=== PATIENT | male | born 1995 | race Two or more races ===

== ENCOUNTER 2018-10-28 01:16 | Emergency (ER) | payer OTHER ==
[~2018-10-28] VITALS: Ht 185.4 cm; Wt 102.1 kg
--- NOTE | 2018-10-28 01:20 | NUR ---
PT [id number] FROM A HOTEL AFTER WITNESSED FOCAL SEIZURE. PER RA, PATIENT BS WAS 40 ON SCENE. PT DENIES SOB, CHEST PAIN, HEADACHE, CHANGE IN VISION. PT AAOX4. RESPIRATIONS EVEN AND UNLABORED. SKIN WARM AND INTACT. VITAL SIGNS STABLE. NO ACUTE DISTRESS NOTED. PT PLACED ON CONTINUOUS RESPONDER, WAITING MD EVALUATION
--- NOTE | 2018-10-28 01:23 | NUR ---
MD AT BEDSIDE FOR EVALUATION
[2018-10-28] MEDS ORDERED: LEVETIRACETAM (500MG) 1,000 MG in IV NS 0.9% 100 ML IV STA (01:46)
[2018-10-28] MEDS ORDERED: LEVETIRACETAM (500MG) 500 MG/5 ML VIAL IV ONE ×3 (01:51→02:00)
[2018-10-28] MEDS ORDERED: IV NS 0.9% 1,000 ML BAG IV ONE (02:00)
[2018-10-28 02:05] LABS: BASOPHILS % (AUTO) 0.3 % (0.0-2.0); EOSINOPHILS % (AUTO) 1.6 % (0.0-6.0); HEMATOCRIT 44 % (39-51); HEMOGLOBIN 14.9 g/dL (13.5-17.5); LYMPHOCYTES # (AUTO) 2.5 /CMM (0.8-4.8); LYMPHOCYTES % (AUTO) 32.9 % (20.0-44.0); MEAN CORPUSCULAR HGB CONC 34 g/dl (31.0-36.0); MEAN CORPUSCULAR VOLUME 88 fL (80-96); MONOCYTES # (AUTO) 0.5 /CMM (0.1-1.30); MONOCYTES % (AUTO) 6.3 % (2.0-12.0); NEUTROPHILS # (AUTO) 4.5 /CMM (1.8-8.9); NEUTROPHILS % (AUTO) 58.9 % (43.0-81.0); PLATELET COUNT (AUTO) 283 /CMM (150-450); RED BLOOD CELL COUNT(AUTO) 5.06 MIL/uL (4.5-6.0); WHITE BLOOD COUNT (AUTO) 7.6 K/uL (4.3-11.0)
[2018-10-28 02:13] LABS: CALCIUM, SERUM 9.3 mg/dL (8.5-10.1); CREATININE 1.4 mg/dL (0.6-1.3); POTASSIUM 3.4 mmol/L (3.5-5.1)
--- NOTE | 2018-10-28 03:38 | NUR ---
Patient discharged to home in stable condition. Written and verbal after care instructions given. Patient verbalizes understanding of instruction. IV removed. Catheter intact and site benign. Pressure and 4x4 applied to site. No bleeding noted. Pt ambulatory with a steady gait
[2018-10-28 03:39] VITALS: BP 118/72
== END 2018-10-28 03:40 | disposition home or self-care (01) ==
LOC: ER 01:26
DX: R56.9 Unspecified convulsions (principal); E16.2 Hypoglycemia, unspecified; E87.6 Hypokalemia; F43.10 Post-traumatic stress disorder, unspecified; Z98.890 Other specified postprocedural states
CPT/HCPCS: 36415; 80048; 82962 ×3; 85025; 96365; 99283; A4606; J1953 ×2; J7030 ×3; J7060; Z7610